=== PATIENT | female | born 1990 | race Two or more races ===

== ENCOUNTER 2017-06-05 16:06 | Emergency (ER) | payer OTHER ==
--- NOTE | ~2017-06-05 | CR63 ---
[facility]. [facility] A Service of [facility] & [facility] RADIOLOGY TEXT RESULTS PATIENT: MANGO GAUTAM LOCATION: SED : [birth year] UNIT #: [id number] AGE: [address]: JASWANT RIVAS SEX: F ORDER DR: [id number] [place] [id number] E MR#: [id number] Acc #: [id number] NAME: MANGO GAUTAM : 1990 SEX: F STUDY DATE/TIME: 06/05/2017 16:35 UNIT: SED ROOM: STUDY DESCRIPTION: CR Chest 2 View Attending Physician: Jaswant Rivas Ordering Physician: Jaswant Rivas Primary Care Physician: Irais Cardoza M.D. MEDICAL IMAGING REPORT This report is preliminary unless electronic signature is present. EXAM Two-view chest 06/05/2017 HISTORY A 26-year-old female with cough and left-sided chest pain for 2-3 weeks. COMPARISON STUDIES None. FINDINGS Two views of the chest demonstrate clear lungs. No pleural effusion or pneumothorax. Heart size and mediastinum are normal. Pulmonary vasculature normal. IMPRESSION No acute cardiopulmonary findings Dictated by... Vince Charles M.D. THIS IS AN ELECTRONICALLY VERIFIED REPORT Vince Charles M.D. at 06/06/2017 9:57 AM JAS/jamil TD: 06/05/2017 23:45 JOB #: [id number] MEDICAL IMAGING REPORT Page 1 of 1
[~2017-06-05 16:06] MED LIST: BIRTH CONTROL PILL; BIRTH CONTROL PILL PO; CIPRO PO; DOXYCYCLINE HY100 M3 PO; ERYC250 MG PO; IRON1 TAB PO; KETOPROFEN PO; METRONIDAZOLE PO; ORTHO TRI-7 DAYS X PO; ORUDIS75 M1 PO; PRED-G 1% EYE DR5 ML OP; PREDNISONE PO; PRENATA CHEWAB1 EAC1 PO; Z-PACK; ZITHROMAX PO
[2017-06-05] MEDS ORDERED: NO MEDICATIONS (16:24)
== END 2017-06-05 17:30 | disposition home or self-care (01) ==
LOC: SED 16:06
DX: J20.9 Acute bronchitis, unspecified (principal); F32.9 Major depressive disorder, single episode, unspecified; Z88.0 Allergy status to penicillin; Z88.8 Allergy status to other drugs, medicaments and biological substances
CPT/HCPCS: 71020; 99283